=== PATIENT | male | born 1955 | race African-American/Black ===

== ENCOUNTER 2017-03-20 15:24 | Emergency (ER) | payer MEDICAID ==
[~2017-03-20] VITALS: Ht 185.4 cm; Wt 64.0 kg
[2017-03-20 16:20] VITALS: Ht 185.4 cm; Wt 64.0 kg
[2017-03-20 18:11] VITALS: BP 120/64
== END 2017-03-20 18:11 | disposition home or self-care (01) ==
LOC: ED 15:24
DX: B35.1 Tinea unguium (principal); R56.9 Unspecified convulsions; R05 Cough